=== PATIENT | female | born 1945 | race Hispanic/Latino ===

== ENCOUNTER 2021-12-15 08:21 | Observation (INO) | payer MEDICARE ==
[~2021-12-15] VITALS: Ht 157.5 cm; Wt 54.0 kg
[~2021-12-15 08:21] MED LIST: ACETAMINOPHEN325 M1 PO; ATORVASTATIN CA20 MG PO; OMEPRAZOLE40 MG PO; ROPIVACAINE 246.25 MG, EPINEPHRINE HCL 1:1000 1ML 0.5 MG, CLONIDINE HCL 0.08 MG, KETORO... INJ ONE; VITAMIN B-121000 MCG PO; VITAMIN D3 PO; Z.0.NEXIUM20 MG PO
[2021-12-15] MEDS ORDERED: DEXAMETHASONE SOD PHOS 10 MG/1 ML VIAL ONE (08:34)
[2021-12-15] MEDS ORDERED: CELECOXIB 200 MG CAP ONE (08:34)
[2021-12-15] MEDS ORDERED: GABAPENTIN 300 MG CAP ONE (08:35)
[2021-12-15] MEDS ORDERED: ONDANSETRON HCL INJ 2MG/ML 2ML 2 MG/ML VIAL ONE (12:08)
[2021-12-15] MEDS ORDERED: DEXAMETHASONE SOD PHOS INJ 4 MG/ML SDV ONE (12:08)
[2021-12-15] MEDS ORDERED: POVIDONE IODINE 0.05% 0.05 % ML PO ONE (12:08)
[2021-12-15] MEDS ORDERED: SEVOFLURANE INHAL SOLN 250 ML PEN BTL ONE (12:08)
[2021-12-15] MEDS ORDERED: PROPOFOL IV EMULSION 10 MG/ML 20 ML VIAL ONE (12:08)
[2021-12-15] MEDS ORDERED: LIDOCAINE HCL 2% LOCAL INJ 5 ML SDV VIAL INJ ONE (12:08)
[2021-12-15] MEDS ORDERED: METOCLOPRAMIDE HCL 10 MG/2ML VIAL ONE (12:08)
[2021-12-15] MEDS ORDERED: ROPIVACAINE 0.5% 5 MG/ML 30 ML SDV ONE (12:14)
[2021-12-15] MEDS ORDERED: MIDAZOLAM HCL 2 MG/2 ML VIAL ONE (12:15)
[2021-12-15] MEDS ORDERED: FENTANYL CITRATE/PF 100MCG/2 ML INJ ONE (12:15)
[2021-12-15] MEDS ORDERED: KETOROLAC TROMETHAMINE 30 MG/ML VIAL IV PRN (13:00)
[2021-12-15] MEDS ORDERED: ZOLPIDEM TARTRATE 5 MG TAB PO PRN (13:00)
[2021-12-15] MEDS ORDERED: ACETAMINOPHEN 650 MG SUPP PR PRN (13:00)
[2021-12-15] MEDS ORDERED: HYDROCODONE/APAP 5MG-325MG TAB PO PRN (13:00)
[2021-12-15] MEDS ORDERED: DOCUSATE SODIUM 100 MG CAP PO PRN (13:00)
[2021-12-15] MEDS ORDERED: DIPHENHYDRAMINE HCL INJ 50 MG/ML VIAL IV PRN (13:00)
[2021-12-15 14:42] VITALS: BP 122/73
[2021-12-15] MEDS: SODIUM CHLORIDE 0.9% 1000ML 1,000 ML IV SCH (15:00)
[2021-12-15] MEDS: HYDROCODONE/APAP 7.5MG-325MG 1 EA TAB PO PRN ×2 (15:38→22:46)
[2021-12-15 16:27] VITALS: BP 122/73
[2021-12-15] MEDS: ASPIRIN 325 MG TAB PO SCH (16:27)
[2021-12-15] MEDS: CELECOXIB 200 MG CAP PO SCH (16:27)
[2021-12-15] MEDS: ONDANSETRON HCL INJ 2MG/ML 2ML 2 MG/ML VIAL IV PRN (17:25)
[2021-12-15 20:00] VITALS: BP 99/58
[2021-12-15 21:00] VITALS: BP 99/58
[2021-12-16] VITALS: BP 103/77
[2021-12-16 05:03] LABS: HEMATOCRIT 34.9 % (34.2-44.1)
[2021-12-16] MEDS: HYDROCODONE/APAP 7.5MG-325MG 1 EA TAB PO PRN ×2 (05:07→10:10)
[2021-12-16] MEDS: SODIUM CHLORIDE 0.9% 1000ML 1,000 ML IV SCH (05:07)
[2021-12-16 05:36] VITALS: BP 129/72
[2021-12-16] MEDS: ONDANSETRON HCL INJ 2MG/ML 2ML 2 MG/ML VIAL IV PRN (05:52)
[2021-12-16 08:00] VITALS: BP 118/60
[2021-12-16 08:37] VITALS: BP 118/60
[2021-12-16] MEDS: ASPIRIN 325 MG TAB PO SCH (09:24)
[2021-12-16] MEDS: CELECOXIB 200 MG CAP PO SCH (09:25)
[2021-12-16] MEDS ORDERED: ASPIRIN81 MG PO (09:35)
[2021-12-16] MEDS ORDERED: ONDANSETRON HCL 4 MG ORAL DISINTEGRATING TAB PO PRN (10:30)
[2021-12-16 11:59] VITALS: BP 110/70
[2021-12-16] MEDS ORDERED: ACETAMINOPHEN 1000 MG/100 ML IV PRN (13:00)
== END 2021-12-16 13:49 | disposition home or self-care (01) ==
LOC: OR 08:21 → PACU V 14:02 → MED/SURG 14:42
PROVIDERS: ADMIT Specialist; ATTEND Specialist
DX: M17.11 Unilateral primary osteoarthritis, right knee (principal); I10 Essential (primary) hypertension; K57.90 Diverticulosis of intestine, part unspecified, without perforation or abscess without bleeding; D64.9 Anemia, unspecified; Z01.812 Encounter for preprocedural laboratory examination; Z01.818 Encounter for other preprocedural examination; Z20.822 Contact with and (suspected) exposure to COVID-19
CPT/HCPCS: 27447; 36415; 71046; 73560; 85014; 85018; 86850; 86900; 86920 ×2; 94799; 97110 ×2; 97116 ×3; 97139; 97161; C1713 ×2; C1776 ×3; G0378 ×2; J0171; J0690 ×2; J1100 ×2; J1885; J2001; J2250; J2405 ×2; J2704; J2765; J2795; J3010; J7030 ×2; Q0162; U0002